=== PATIENT | male | born 1935 | race Caucasian/White ===

== ENCOUNTER 2017-09-24 19:38 | Emergency (ER) | payer MEDICARE ==
[~2017-09-24] VITALS: Ht 165.1 cm; Wt 56.7 kg
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
--- NOTE | 2017-09-24 20:23 | NUR ---
LAB AT BEDSIDE FOR DRAW.
[2017-09-24 20:24] LABS: HEMATOCRIT 32 % (39-51); MEAN CORPUSCULAR HEMOGLOBIN 21 PG (26.0-33.0); MEAN CORPUSCULAR HGB CONC 31 g/dl (31.0-36.0); MEAN CORPUSCULAR VOLUME 67 fL (80-96); PLATELET COUNT (AUTO) 226 /CMM (150-450); RDW COEFFICIENT OF VARIATION 14.3 (11.5-15.0); RED BLOOD CELL COUNT(AUTO) 4.78 MIL/uL (4.5-6.0); WHITE BLOOD COUNT (AUTO) 8.2 K/uL (4.3-11.0)
[2017-09-24] MEDS ORDERED: LIDOCAINE /MPF 1% VIAL 5 ML VIAL ONE (20:25)
[2017-09-24] MEDS ORDERED: TDAP [DIPH/PERTUSSIS/TET] 0.5 ML VIAL IM ONE ×2 (20:28→20:30)
[2017-09-24] MEDS ORDERED: LIDOCAINE HCL/PF 1% 30 ML VIAL TP ONE (20:30)
[2017-09-24] MEDS ORDERED: BACI/NEOM/POLY B OINT PKT 1 UDPKT PACKET TP ONE (20:30)
--- NOTE | 2017-09-24 20:30 | NUR ---
PT TO CT VIA STRETCHER. VSS.
[2017-09-24 20:35] LABS: CALCIUM, SERUM 9.3 mg/dL (8.5-10.1); CARBON DIOXIDE 30 mmol/L (21-32); CHLORIDE 103 mmol/L (98-107); CREATININE 0.9 mg/dL (0.6-1.3); GLUCOSE 98 mg/dL (74-106); POTASSIUM 4.6 mmol/L (3.5-5.1); SODIUM SERUM 140 mmol/L (136-145); UREA NITROGEN, BLOOD 25 mg/dL (7-18)
--- NOTE | 2017-09-24 20:40 | NUR ---
PT BACK FROM CT.
[2017-09-24 20:44] LABS: TROPONIN I < 0.017 ng/mL (0.00-0.056)
--- NOTE | 2017-09-24 20:44 | NUR ---
EMT AT BEDSIDE FOR EKG.
[2017-09-24 20:47] LABS: INR 1.03 (0.87-1.13)
[2017-09-24 21:08] LABS: EOSINOPHILS % (MANUAL) 1 % (0-4); LYMPHOCYTES % (MANUAL) 17 % (16-48); MONOCYTES % (MANUAL) 8 % (0-11.0); NEUTROPHILS % (MANUAL) 74 (42-76)
--- NOTE | 2017-09-24 21:15 | NUR ---
CANCELLED SALINE LOCK.
--- NOTE | 2017-09-24 21:50 | NUR ---
EMT AT BEDSIDE FOR WC.
--- NOTE | 2017-09-24 21:56 | NUR ---
Patient discharged to home in stable condition. Written and verbal after care instructions given. Patient verbalizes understanding of instruction. Patient is awake and alert to self, day, and place.
[2017-09-24 21:58] VITALS: BP 139/77
== END 2017-09-24 21:58 | disposition home or self-care (01) ==
LOC: ER 19:44
DX: S01.511A Laceration without foreign body of lip, initial encounter (principal); Z86.73 Personal history of transient ischemic attack (TIA), and cerebral infarction without residual deficits; W18.39XA Other fall on same level, initial encounter; Y93.89 Activity, other specified; Y92.89 Other specified places as the place of occurrence of the external cause; Y99.8 Other external cause status
CPT/HCPCS: 36415; 40650; 70450; 70486; 80048; 82962; 84484; 85025; 85730; 90471; 90715; 93005; 99285; A4606; A6402; J3490 ×2; Z7610